=== PATIENT | female | born 1985 | race Caucasian/White ===

== ENCOUNTER 2016-11-04 06:05 | Inpatient (IN) | payer OTHER ==
[~2016-11-04] VITALS: Ht 157.5 cm; Wt 77.6 kg
[2016-11-04] VITALS (16 sets, daily range): BP systolic 114–186; BP diastolic 67–132
[2016-11-04] MEDS ORDERED: VALTREX50 MG/ML PO (06:45)
[2016-11-04] MEDS ORDERED: ZANTAC150 MG PO (06:46)
[2016-11-04] MEDS ORDERED: PRENATAL TABLE1 EAC3 PO (06:56)
[2016-11-04 07:08] LABS: EOSINOPHIL (%) 1.1 % (0-5); EOSINOPHIL COUNT 0.1 K/uL (0-0.3); HEMATOCRIT 36.3 % (36.0-46.0); IMMATURE GRANULOCYTE (%) 0.8 % (0.0-0.7); IMMATURE GRANULOCYTE COUNT 0.1 K/uL; LYMPHOCYTE COUNT 2.1 K/uL (1.0-2.8); MCH 27.2 PG (29.0-34.0); MCHC 32.8 G/DL (30.0-36.0); MCV 82.9 FL (83-99); MEAN PLAT.VOLUME 9.6 uM^3 (9.5-12.4); MONOCYTE (%) 8.6 % (3-12); MONOCYTE COUNT 0.9 K/uL (0-0.8); NEUTROPHIL (%) 68.4 % (45-76); NEUTROPHIL COUNT 6.9 K/uL (1.8-6.4); PLATELET COUNT 248 K/uL (156-360); RBC DIS.WIDTH-CV 14.7 % (11.8-14.6); RBC DIS.WIDTH-SD 44.5 % (39-53); RED BLOOD COUNT 4.38 M/uL (3.80-5.20)
[2016-11-04] MEDS ORDERED: IBUPROFEN800 MG PO (13:36)
[2016-11-05 15:42] VITALS: BP 131/77
== END 2016-11-05 17:30 | disposition home or self-care (01) | DRG 775 ==
LOC: LDRP-OP 06:05 → 2WEST 06:06 → LDRP-OP 12-04 12:31
PROVIDERS: Midwife
DX: O63.9 Long labor, unspecified (principal); O70.0 First degree perineal laceration during delivery; Z3A.39 39 weeks gestation of pregnancy; Z37.0 Single live birth
CPT/HCPCS: 85025; C1755; J7120